=== PATIENT | female | born 2005 | race African-American/Black ===

== ENCOUNTER 2023-08-19 00:57 | Emergency (ER) | payer OTHER, SELFPAY ==
[2023-08-19 00:59] VITALS: BP 127/87; PULSE 81; RESP 16; TEMP 37.2; O2SAT 97; BMI 35.3
--- NOTE | 2023-08-19 01:39 | RAD_ITS ---
EXAM: XR Abdomen 1 View INDICATION: Female, 18 years old. Constipation TECHNIQUE: AP supine view COMPARISON: None FINDINGS: BOWEL: Normal gastric, small bowel and colonic gas patterns. No mucosal wall thickening. PERITONEUM: No free intraperitoneal air. ORGANS: No intra-abdominal mass. No intra-abdominal calcification. SKELETAL STRUCTURES: No acute skeletal abnormality. RAD/Abdomen Single View IMPRESSION: No acute intra-abdominal abnormality Electronically Signed: Víctor Bartlett MD at 2:33 EDT ,
--- NOTE | 2023-08-19 01:40 | ED.VIS.GI ---
HPI HPI - GI History of Present Illness Chief Complaint: Complaint Detail of Chief Complaint: Difficulty urinating. Constipation. Informant: patient Abdominal Pain/Flank Pain Onset: Days Context: Gradual Onset Timing: Continuous Location: - (Suprapubic) Current Severity: Mild Maximum Severity: Mild Nausea/Vomiting/Emesis GI Symptom: Negative for Nausea or Vomiting Diarrhea/Melena/Hematochezia GI Symptom: Positive for - (Constipation. 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 Past medical history of asthma. States that she is having difficulty urinating. States she has not a bowel movement for nearly 3 weeks. Has a history of constipation. No prior abdominal surgery. States she is using laxatives. When the nurses were doing her normal triage questioning they asked her if she felt safe patient has a chronic history of depression but she is currently not suicidal at this time she told me. Prior similar symptoms: Yes Recent Illness/Hospitalization: No PFSH PFSH Medical History Constipation Home Medications sulfamethoxazole 800 mg-trimethoprim 160 mg tablet (Bactrim DS) 1 tab PO BID 7 days #14 tabs 08/19/23 [Rx Last Taken Unknown] Allergy/AdvReac Type Severity Reaction Status Date / Time No Known Allergies Allergy Verified 08/19/23 01:19 Social History Smoking Status: Never smoker ROS ROS ED ROS Narrative Constipation. Trouble urinating. Abdominal discomfort. Review of Systems ROS Unobtainable: Denies due to encephalopathy Constitutional Constitutional ED: Denies chills or fever(s) Respiratory/Chest Respiratory/Chest: Denies cough Gastrointestinal Gastrointestinal: Reports abdominal pain and constipation; Denies diarrhea, melena, nausea or vomiting Genitourinary Genitourinary ED: Denies dysuria, hematuria or urinary frequency Musculoskeletal Musculoskeletal: Denies arthralgias or back pain Integumentary Denies abscess Neurologic Neurologic: Denies headache(s) Psychiatric Psychiatric: Denies anxiety or depression Endocrine Endocrinology: Denies polydipsia Hematologic/Lymphatic Hematologic/Lymphatic: Denies easy bleeding Allergic/Immunologic Allergic/Immunologic ED: Denies mouth swelling or tongue swelling EXAM Physical Exam Narrative Exam Narrative: Well-appearing 18-year-old female. Vital signs stable afebrile. She does not look septic toxic in any distress. HEENT exam unremarkable. Pupils round reactive light. No signs of trauma. Moist extremities. Neck nontender. No lymphadenopathy. Lungs clear to auscultation bilaterally. Heart regular rhythm rate about 80 no murmur. Chest wall and ribs nontender. Abdomen soft nondistended normal bowel sounds no peritoneal signs. No localizing tenderness. No hernia or mass. No signs of obstruction. Soft. Bowel sounds. Moving all 4 extremities. Nontender no edema. Normal range of motion. Normal caster investment casting strength. Back nontender. Skin unremarkable. Neurologically she is awake alert with no focal motor deficits. Const Vital Signs: 08/19/23 00:59 08/19/23 03:39 Temperature 98.9 F Temperature Source Oral Pulse Rate 81 Respiratory Rate 16 16 Blood Pressure 127/87 H Blood Pressure Mean 100 Pulse Ox 97 Oxygen Delivery Method Room Air Positive well nourished and well developed; Negative for cachectic, contractures or unkempt General Appearance ED: well developed and NAD; Negative for unkempt, cachectic, contractures or pallor Nutritional Appearance: Negative for cachectic HEENT Reports moist mucous membranes normocephalic and atraumatic; Negative for trauma or tenderness Eyes PERRL and EOMs intact bilaterally General Eye ED: Negative for pale conjunctiva or scleral icterus Neck no lymphadenopathy, supple and no JVD General: Negative for tenderness Carotids: Negative for other Lymph Lymphatic: Negative for other Resp normal respiratory effort and clear to auscultation bilaterally Effort and Inspection: Negative for respiratory distress Auscultation: Negative for rales, rhonchi or wheezes Cardio regular rate, regular rhythm, S1 normal heart sound, S2 normal heart sound and no murmurs Rate: Negative for bradycardia or tachycardic Rhythm: Negative for abnormal rhythm GI non-tender, non-distended and no masses Inspection: Negative for abdominal distention Auscultation: normoactive bowel sounds Palpation: soft; Negative for tender, guarding or rigid Back/Spine no CVA tenderness General Back: Negative for CVA tenderness Cervical Spine: Negative for cervical spine tenderness Thoracic Spine / Upper Back: Negative for thoracic spinal tenderness Lumbar Spine / Lower Back: Negative for lumbar spinal tenderness Coccyx: Negative for other Extremity full ROM General Extremety ED: Negative for edema or tenderness General Extremity: Negative for edema Neuro CN's II-XII intact bilaterally and moves all extremities Sensorium / Orientation: alert, oriented to person, oriented to place and oriented to time; Negative for orientation impaired, confused, lethargic or stuporous Motor Exam: strength 5/5 throughout Psych mental status grossly normal and thought process normal Appearance: Negative for unkempt Attitude: No agitated Mood & Affect: Negative for depressed, anxious or tearful Skin no wounds General Skin Exam: Negative for jaundice or pallor Lesions: no lesions Rashes: no rashes Trauma: Negative for abrasion Nails: Negative for discolored MDM MDM MDM Narrative Medical decision making narrative: 18-year-old female complaining constipation abdominal discomfort and trouble urinating. Urinalysis and urine test to be obtained. Her last menstrual period was within the last month. KUB for constipation. She will be given Tylenol for pain. Patient is doing well at 4:20 AM. She has been up and ambulating she walked to the bathroom. She will be treated for a UTI. Urine culture sent. She has no allergies to antibiotics she will be started on Bactrim 1 pill twice a day for a week. That will be filled here at the hospital. Plenty of fluids. Fruits vegetables and fiber. Stool softener for constipation. Outpatient follow-up. History & Record Review Discussion w/independent historian: Patient Additional record(s) reviewed:: No prior records Lab Data Attestation: I reviewed the patient's lab results. Lab results narrative: Urinalysis shows positive nitrites, no red cells, 25-50 white blood cells. It is contaminated with 5 to epithelial cells but also has 4+ bacteria. Given her symptoms, nitrates, bacteria and white cells this will be treated as UTI. Urine culture will be sent. Urine test is negative. Labs: Laboratory Results - last 24 hr 08/19/23 03:35 Urine Color Yellow Urine Clarity Clear Urine pH 6.0 Ur Specific Dex[place] 1.020 Urine Protein 15 H Urine Glucose (UA) Normal Urine Ketones Negative Urine Occult Blood Negative Urine Nitrite Positive H Urine Bilirubin Negative Urine Urobilinogen 4 H Ur Leukocyte Esterase 100 H Urine RBC 0-5 SEEN Urine WBC 25-50 SEEN Ur Squamous Epith Cells 5-10 SEEN Urine Bacteria 4+ Urine Mucus 0 SEEN Urine Test Negative Radiography Diagnostic Testing: Clinical Impression(s) from Imaging Studies KUB X-Ray 08/19/23 01:39 IMPRESSION: No acute intra-abdominal abnormality Electronically Signed: Víctor Bartlett MD at 2:33 EDT , KUB single view interpreted by myself and the radiologist shows no acute intra-abdominal abnormality. There is increased stool in the colon and rectum. Consistent with constipation. Discharge Plan Triage Chief Complaint: Complaint ED Provider: Ty Rush Dx/Rx/DC Orders Clinical Impression: Urinary tract infection, Constipation Instructions: Urinary Tract Infections in Women, ED Constipation (Adult) Prescriptions: New sulfamethoxazole-trimethoprim [Bactrim DS] 800-160 mg tablet 1 tab PO BID 7 Days Qty: 14 0RF Primary Care Provider: Care Physician,No Primary Referrals: Bebeto Santos MD [Med Staff - Light Cleaner] - As Needed [facility] Doctor,Out of [Non-Staff] - Activity Restrictions/Additional Instructions: You have a urinary tract infection. That will be treated with antibiotic Bactrim. You will take 1 pill twice a day for 7 days. Plenty of fluids and cranberry juice for the urinary tract infection. Plenty of fluids, fruits, vegetables and fiber for the constipation. Prune juice if needed. Stool softener as needed. Follow-up with your doctor if not improving or return if worse. Disposition Disposition: Home, Self Care
[2023-08-19] MEDS: Acetaminophen 500 MG Tablet 1000 MG PO (02:10)
[2023-08-19 03:39] VITALS: RESP 16
[2023-08-19 03:40] LABS: Mucous, Urine 0 SEEN /hpf (<or=2+)
[2023-08-19 03:41] LABS: Color, Urine Yellow (Yellow); Glucose, Dipstick Normal (Normal); Ketone-Dipstick Negative (Negative); Leukocyte Esterase-Dipstick 100 /ul (Negative); Nitrite-Dipstick Positive (Negative); Occult Blood-Urine Negative /ul (Negative); Protein-Dipstick 15 mg/dl (Negative); Urine Bilirubin Dipstick Negative (Negative); Urine Clarity Clear (Clear); Urine Urobilinogen 4 mg/dl (Normal)
[2023-08-19 03:47] LABS: Bacteria 4+ /hpf (None Seen); Red Blood Cells-Urine 0-5 SEEN /hpf (0-5); Squamous Epithelial Cells - UA 5-10 SEEN /hpf (5-10); White Blood Cells 25-50 SEEN /hpf (0-5)
[2023-08-19 03:48] LABS: Internal QC Validated? YES +Cl - CLEAR BKGD; Pregnancy, Urine Negative Negative
[2023-08-19] MEDS: Smz/Tmp Ds Tablet 1 TABLET PO (04:48)
== END 2023-08-19 04:51 | disposition home or self-care (01) ==
PROVIDERS: Emergency Provider Emergency Medicine; Visit Provider Emergency Medicine
DX: N39.0 Urinary tract infection, site not specified (principal); K59.00 Constipation, unspecified
CPT/HCPCS: 74018; 81001; 81025; 87077; 87086; 87088; 87186; 99284

== ENCOUNTER 2023-12-18 13:11 | Day surgery (SDC) | payer OTHER, SELFPAY ==
[2023-12-18] VITALS (7 sets, daily range): BP systolic 83–109; BP diastolic 52–71; PULSE 64–80; RESP 12–18; TEMP 35.8–36.4; O2SAT 97–100; BMI 37.5
--- NOTE | 2023-12-18 13:37 | PCM.HP.BLA ---
History and Physical Date of Admission: 12/18/23 Pre-Op History and Physical ? HPI: The patient is a 18 year old female presenting for pre-operative visit. She is scheduled for Suction D&C, for missed ab on 12/18/23. Procedure discussed along with risks, benefits and complications. Other alternatives discussed for management. Consent form signed? Yes. ? ? PAST MEDICAL HISTORY PAST MEDICAL HISTORY Diagnosis Date ? Asthma ? ? ? PAST SURGICAL HISTORY PAST SURGICAL HISTORY Procedure Laterality Date ? NONE ? CURRENT MEDICATIONS Current Outpatient Medications Medication Sig Dispense Refill ? doxylamine-pyridoxine, vit B6, 10-10 mg TbEC Take 2 tabs at night. If symptoms persist after 2 days add one tab in the morning. If symptoms still persist after 4 days add a tab mid-day 60 tablet 1 ? No current facility-administered medications for this visit. ? ? ALLERGIES: Patient has no known allergies. ? PERSONAL HISTORY: SOCIAL HISTORY Social History ? Tobacco Use ? Smoking status: Never ? Smokeless tobacco: Never Vaping Use ? Vaping Use: Never used Substance Use Topics ? Alcohol use: Never ? Drug use: Never ? FAMILY HISTORY: FAMILY HISTORY No family history on file. ? REVIEW OF SYMPTOMS: negative except as noted above PHYSICAL EXAMINATION: ? VITALS: Blood pressure 116/72, pulse 96, last menstrual period 10/20/2023, SpO2 100%. ? GENERAL: The patient is well nourished, well hydrated in no acute distress. , The patient is oriented to time, place, and person. NECK: full range of motion GENITALIA: Normal external genitalia, Urethral meatus normal, Bladder nontender, normal vagina and normal vaginal tone, normal cervix, and perineum WNL ? Limited Bedside us: 8w4 day- intrauterine no cardiac activity. Gestational sac funneling to endocervix. ? IMPRESSION: @ 8w4d- missed ? PLAN: Suction D&C ? Pt has been counseled on risks/benefits and alternatives of surgery including but not limited to anesthesia, bleeding, infection, uterine perforation injury to pelvic structures including bowel, bladder, ureters and vessels. Pt wishes to proceed with surgery at this time. Retained products- need for transfusion reviewed. ? Pre and post op instructions reviewed Doxycycline and preop labs ordered. Declines Chromosomal testing of POC- Routine to Lab ? I have reviewed and updated past medical and surgical history, medications and allergies Ruba Livingston MD
[2023-12-18 13:55] LABS: Hematocrit 39.9 % (37-47); Hemoglobin 12.5 g/dL (12.0-15.0); Mean Corp Hgb Conc 31.3 g/dL (32-36); Mean Corpuscular Hgb 26.3 pg (27.0-32.0); Mean Corpuscular Volume 83.8 fL (81-99); Mean Platelet Vol. 10.2 fl (6.2-12.0); Platelet Count 314 K/mm3 (150-450); RBC Distribution Width CV 13.2 % (11.6-14.6); RBC Distribution Width SD 40.4 fl (35.1-43.9); Red Blood Count 4.76 M/mm3 (4.2-5.4); White Blood Count 7.5 K/mm3 (4.4-11.0)
[2023-12-18] MEDS: Doxycycline 100 MG CAPSULE 200 MG PO (14:03)
[2023-12-18] MEDS: Lactated Ringers 1,000 ML 15 ML IV (14:03)
--- NOTE | 2023-12-18 14:30 | POC_PTH ---
PATHOLOGY RESULTS PATIENT: CHRIS SON [place] [facility] [place] U[place][id number] AGE/SX: 18/F ROOM: RE12/18/[address]: Dr. Opal Vasquez MD : 2005 BED: DIS: 12/18/2023 SPEC #: [id number] RECD: 12/21/23 08:11 STATUS: DELORES BURCIAGA #: [id number] SRAVAN: 12/18/23 14:[address]: Opal Vasquez DEPT: SURGICAL PATHOLOGY RECD BY: Tiara Trotter ENTERED: 12/21/23 08:11 SP TYPE: PROD CONC OTHR DR: No Primary Care Phys Tissues: Product of conception, NOS Procedures: Surgery Specimen Level IV HEADER OPERATION: Suction dilation and curettage PRE-OP DIAGNOSIS: Missed , , 8 weeks, 4 days TISSUE SUBMITTED: Products of conception MICROSCOPIC DIAGNOSIS Endometrium, curettage: Chorionic villi, decidualized stroma and trophoblastic cells (products of conception). AM:steve 12/22/2023 MICROSCOPIC DESCRIPTION Slides are reviewed. GROSS DESCRIPTION Received in fixative is one container labeled with the patient's name and designated products of conception. The specimen consists of multiple irregular fragments of light to dark menendez soft tissue that in aggregate measure 10.0 x 7.0 x 1.5 cm. parts are not grossly recognized. Floral Arranger portions are submitted in one cassette. / AM:steve 05/22/2024 TC:5 CPT: 88108
--- NOTE | 2023-12-18 16:24 | OP.PCM_ITS ---
Problems Associated Problem List Diagnoses (1) Incomplete miscarriage: Report of Operation Date of Procedure: 12/18/23 Pre-Operative Diagnosis: incomplete miscarriage 8 weeks 4 days Post-Operative Diagnosis: same Surgery/Procedure Performed:: Suction D&C Description of Surgical Findings:: POC at internal os. Small clot Uterine cavity 9 cm Surgeon: Opal Vasquez electrical accessories i assembler: None Type of Anesthesia: MAC/Supplemental Anesthesiologist: Skye Jeffrey Specimen's removed: productions of conseption Estimated Blood Loss (mL): 50 Fluids Replaced: 500 cc Description of Procedure: Patient was taken to the OR and placed on the OR table in a dorsal supine position. Anesthesia was induced and she was placed in a dorsal lithotomy position. A vaginal prepped was performed and her bladder was drained by straight cath. A weighted speculum was placed and the anterior cervix grasped with a single tooth tenaculum. The uterine cavity was found to be 9 cm. The cervix was serially dilated with ease. An 8 curved curette was placed the cavity and the suction used to evacuate the contents. A sharp curette was used to dislodge the remaining membranes. The suction curette was once again introduced into the cavity and the cavity evacuated. Minimal bleeding occurred. All instruments were removed from the vagina and she was cleaned up. All counts were correct. She was taken to the PACU in stable condition. Procedure Start Time: 15:50 Procedure Stop Time: 16:00 Complications none Admit VTE Documentation VTE Present on Admission: No VTE Mechan Device Prophylaxis: None VTE Pharm Prophylaxis ordered?: No Reason prophylaxis not ordered:: Treatment Not Indicated
== END 2023-12-18 18:34 | disposition home or self-care (01) ==
LOC: SDC 13:16 → AC 13:17
PROVIDERS: Obstetrics & Gynecology; Referring Provider Obstetrics & Gynecology; Visit Provider Obstetrics & Gynecology
PROC: (CPT 59812; principal; 2023-12-18 14:15)
DX: O03.4 Incomplete spontaneous abortion without complication (principal)
CPT/HCPCS: 59812; 85027; 86850; 86900; 86901; 88305; J7120; J2405

== ENCOUNTER 2025-01-09 16:29 | Emergency (ER) | payer OTHER, SELFPAY ==
[2025-01-09 16:30] VITALS: BP 115/91; PULSE 115; RESP 18; TEMP 36.9; O2SAT 100; BMI 37.9
--- NOTE | 2025-01-09 16:54 | US_ITS ---
PROCEDURE: TRANSVAGINAL W/PREG US 01/09/2025 REASON FOR EXAM: VAGINAL BLEEDING WITH COMPARISON: None FINDINGS: No visualized yolk sac or embryo is noted. No detectable heart rate. . Uterine Abnormalities: Maternal uterus is unremarkable. Uterus measures 7.9 x 4.93.7 cm. Ovaries / Adnexa: Both maternal ovaries are visualized and unremarkable. Right ovary measures 3.7 x 3.5 x 2.6 cm in the left ovary measures 2 x 1.6 x 1.7 cm. There is a 2.2 x 2.2 x 2.0 cm corpus luteal cyst within the right ovary. Multiple physiologic follicles also noted. Estimated gestational age by LMP 5 weeks 0 days. US/Transvaginal w/Preg US IMPRESSION: No visualized pole or yolk sac. Findings secondary to a nonviable pregna ncy. However, recommend repeat examination in approximately 1 week to re-evaluate. Reading Location: [facility]
--- NOTE | 2025-01-09 16:56 | EDS_ITS ---
HPI HPI - Female History of Present Illness Chief Complaint: Vag Bld, Preg Narrative Narrative: 19-year-old female, , unknown gestational weeks presents with vaginal bleeding that she experienced today. She relates history that her last menstrual period was on 05 December, 1 month ago, but only lasted 2 days. 2 weeks ago she went to her PRINT PRODUCTION COORDINATOR at the [facility], where she had hormone levels drawn and it was only 250, but 2 days later had increased to over 800. She is taking vitamins. She states that today, she experienced vaginal bleeding almost the same amount as her regular menses. She denies any lightheadedness or dizziness. She states she is not having any pelvic pain or cramping. She is concerned because she had previous miscarriage with her last gestation. PFSH [facility] Medical History Incomplete miscarriage Asthma Constipation Home Medications ?Medication ?Instructions ?Recorded ?Last Taken ?Type hydrocodone-acetaminophen 5-325mg 1 tab PO Q6H PRN jana n 3 days #12 01/09/25 Unknown Rx 5mg-325mg tabs Allergy/AdvReac Type Severity Reaction Status Date / Time No Known Allergies Allergy Verified 01/09/25 16:31 Social History Smoking Status: Never smoker ROS ROS ED ROS Narrative Review of systems positive for vaginal bleeding about the same amount as menses. No pelvic pain or cramping. No lightheadedness or dizziness. No chest pain or shortness of breath. EXAM Physical Exam Narrative Exam Narrative: Afebrile. Vital signs noted. Nontoxic-appearing. Cardiovascular examination reveals mild tachycardia. Lungs clear to auscultation bilaterally. Abdomen soft nontender with normoactive bowel sounds. No noted subconjunctival pallor. Neurological examination nonfocal and nonlateralizing. Able to stand from chair and transfer to cot without difficulty. Chaperoned pelvic examination reveals moderate amount of blood and clot within the vaginal vault which were cleared with cotton swabs. She has no adnexal tenderness or cervical motion tenderness. Difficult to assess cervical os. Const Vital Signs: 01/09/25 16:30 01/09/25 18:30 01/09/25 20:00 Temperature 98.5 F Temperature Source Oral Pulse Rate 115 H 109 H 73 Respiratory Rate 18 15 16 Blood Pressure 115/91 H 116/79 107/88 H Blood Pressure Mean 99 91 94 Pulse Ox 100 99 100 Oxygen Delivery Method Room Air Room Air 01/09/25 21:53 Temperature 98.4 F Temperature Source Pulse Rate 82 Respiratory Rate 16 Blood Pressure 107/88 H Blood Pressure Mean 94 Pulse Ox 99 Oxygen Delivery Method MDM MDM MDM Narrative Medical decision making narrative: Given her vaginal bleeding with reported , concern is for miscarriage versus ectopic versus subchorionic hemorrhage. She is unsure of her blood type, so ABO Rh will be obtained. I will obtain CBC and CMP as well as well as ultrasound. Serum and serum hCG will also be obtained to document levels. I reviewed her laboratory work and she has a normal hemoglobin of 12.0, white count normal at 5.9 with platelet count 416. Sodium normal at 136 with potassium 4.1, chloride 103, BUN of 6 and creatinine 0.66. hCG quantitative measurement is elevated 2865. Serum had been ordered but was canceled by lab. Her blood type is O+. I do not feel she needs RhoGAM. I reviewed the radiology report of the ultrasound, transvaginal, and it comments that there is no visualized pole or yolk sac. However, there was no com ment on whether or not this was an intrauterine gestation or if gestational sac was seen. I discussed the patient directly with the radiologist, who rereviewed the films and states that the gestational sac is present intrauterine only, but is low. I then discussed the patient with the nurse architectural design professor, Dinora Tadeo, who agrees with close outpatient follow-up. Patient is to call tomorrow morning for an appointment to be seen within the next few days as well as arrange for quantitative beta-hCG as well as ultrasound. Patient was given 1 [place] tablet here and prescription written for 12 tablets as I feel she has more of a threatened versus incomplete miscarriage. Return instructions to the emergency department were reviewed. Disposition is discharged home in stable condition. History & Record Review Discussion w/independent historian: Patient Lab Data Attestation: I reviewed the patient's lab results. Labs: Laboratory Results - last 24 hr 01/09/25 17:05 WBC 5.9 RBC 4.81 Hgb 12.0 Hct 38.0 MCV 79.0 L MCH 24.9 L MCHC 31.6 L RDW Std Deviation 40.5 RDW Coeff of Inez 14.2 Plt Count 416 MPV 9.8 Immature Gran % (Auto) 0.200 Neut % (Auto) 60.2 Lymph % (Auto) 32.0 [place] % (Auto) 6.1 Eos % (Auto) 1.2 Baso % (Auto) 0.3 Absolute Neuts (auto) 3.5 Absolute Lymphs (auto) 1.88 Nucleated RBC % 0 Sodium 136 Potassium 4.1 Chloride 103 Carbon Dioxide 21.9 Anion Gap 11 BUN 6 Creatinine 0.66 L Estim Creat Clear Calc 166.49 Est GFR (MDRD) Non-Af 128 BUN/Creatinine Ratio 9.3 L Glucose 93 Calcium 9.2 Total Bilirubin 0.37 AST 23 ALT 8 Alkaline Phosphatase 80 Total Protein 7.3 Albumin 4.2 Globulin 3.2 Albumin/Globulin Ratio 1.3 HCG, Quant 2865 H Serum , Qual Cancelled Blood Type O POSITIVE Radiography Diagnostic Testing: Clinical Impression(s) from Imaging Studies Obstetrics Ultrasound 01/09/25 16:54 IMPRESSION: No visualized pole or yolk sac. Findings secondary to a nonviable . However, recommend repeat examination in approximately 1 week to re-evaluate. [facility] Discussion w/another healthcare provider: Water Jet Operator and Radiologist Discharge Plan Triage Chief Complaint: Vag Bld, Preg ED Provider: Johann Jo Dx/Rx/DC Orders Clinical Impression: Vaginal bleeding during , Threatened Instructions: Miscarriage Threatened Prescriptions: New hydrocodone-acetaminophen 5-325 mg tablet 1 tab PO Q6H PRN (Reason: pain) 3 Days Qty: 12 0RF Primary Care Provider: Care Physician,No Primary Referrals: Onelia Schaefer MD [Med Staff - Active Staff] - 1 Day Care Physician,No Primary [Primary Care Provider] - Activity Restrictions/Additional Instructions: Call the PRINT PRODUCTION COORDINATOR first thing tomorrow morning. They will arrange for follow-up and further testing. Return to the emergency department with increased bleedi ng, increased pain, fever, new or worsening symptoms. Print Language: Jordanian Disposition Disposition: Home, Self Care Discharge Date/Time: 01/09/25 22:00
[2025-01-09 17:19] LABS: Absolute Lymphocyte Count 1.88 X10^3/uL (0.83-4.51); Absolute Neutrophil Count 3.5 X10^3/uL (2.0-7.7); Basophil# 0.02 X10^3/uL; Basophil% 0.3 % (0-1); Eosinophil# 0.07 X10^3/uL; Eosinophils% 1.2 % (0-5); Lymphocyte # 1.88 X10^3/ul (0.83-4.51); Mean Corp Hgb Conc 31.6 g/dL (32-36); Mean Corpuscular Hgb 24.9 pg (27.0-32.0); Mean Platelet Vol. 9.8 fl (6.2-12.0); Monocyte# 0.36 X10^3/uL; Monocyte% 6.1 % (0-10); NRBC Flagged by Analyzer 0 % (0-5); Neutrophil # 3.53 X10^3/uL (2.7-7.7); Neutrophil % 60.2 % (47-70); Platelet Count 416 K/mm3 (150-450); RBC Distribution Width CV 14.2 % (11.6-14.6); RBC Distribution Width SD 40.5 fl (35.1-43.9); Red Blood Count 4.81 M/mm3 (4.2-5.4); White Blood Count 5.9 K/mm3 (4.4-11.0)
[2025-01-09 18:10] LABS: ALB/GLOB Ratio 1.3 RATIO (0.9-2.4); AST(SGOT) 23 U/L (<=31); Alanine Aminotransfer ALT/SGPT 8 U/L (<=34); Albumin, Serum 4.2 g/dL (3.5-5.0); Alkaline Phosphatase 80 U/L (35-104); Anion Gap 11 (5-15); BUN 6 mg/dL (4-19); BUN/Creat Ratio 9.3 RATIO (10-20); Calcium,Total 9.2 mg/dL (7.6-11.0); Carbon Dioxide 21.9 mmol/L (21.0-32.0); Chloride 103 mmol/L (98-108); Creatinine, Serum 0.66 mg/dL (0.70-1.20); EST Glomerular Filtration Rate 128 (>60); Estimated Creatinine Clearance 166.49 ml/min (50-250); Globulin 3.2 g/dL (2.2-4.2); Glucose 93 mg/dL (70-99); Potassium 4.1 mmol/L (3.3-5.1); Protein, Total 7.3 g/dL (5.9-8.4); Sodium Level 136 mmol/L (133-145); Total Bilirubin 0.37 mg/dL (0.00-1.30)
[2025-01-09 18:30] VITALS: BP 116/79; PULSE 109; RESP 15; O2SAT 99
[2025-01-09 20:00] VITALS: BP 107/88; PULSE 73; RESP 16; O2SAT 100
--- NOTE | 2025-01-09 21:10 | ED.RN ---
This RN reported a safety incident at this time d/t blood results not being resulted in appropriate time, causing a delay in patient care. See appropriate documentation.
[2025-01-09] MEDS: HYDROcodone Bitartrate/Apap 5/325 Tablet PO (21:17)
[2025-01-09 21:19] LABS: hCG Titer Quant., Serum 2865 mIU/mL (<9 non-preg)
[2025-01-09 21:53] VITALS: BP 107/88; PULSE 82; RESP 16; TEMP 36.9; O2SAT 99
== END 2025-01-09 22:00 | disposition home or self-care (01) ==
PROVIDERS: Emergency Provider Emergency Medicine; Visit Provider Emergency Medicine
DX: O20.0 Threatened abortion (principal); Z3A.00 Weeks of gestation of pregnancy not specified
CPT/HCPCS: 76817; 80053; 84702; 85025; 86900; 86901; 99284; A4216

== ENCOUNTER 2025-08-23 16:26 | Emergency (ER) | payer OTHER, SELFPAY ==
[2025-08-23 16:27] VITALS: BP 128/92; PULSE 92; RESP 16; TEMP 36.9; O2SAT 100; BMI 38.2
--- NOTE | 2025-08-23 16:52 | EX.ED.VIS.PS ---
HPI HPI - Psych History of Present Illness Chief Complaint: Suicidal Informant: patient and mental health staff Narrative Narrative: 20-year-old female presenting to the emergency room with suicidal thoughts. Patient is a [employer] [place]. Apparently during the night she had texted the suicide hotline as well as her counselor. She was evaluated today and advised to come to emergency. Patient states that she has had 2 miscarriages within the past 2 years. She states that that has been a lot to deal with. She notes that she is struggling with her academic studies currently because of depression. She has been having trouble sleeping and has been utilizing NyQuil and Benadryl daily. Since around March. She states that she has not attended class for the past week and a half. She states that she tried exercising 1 time but was very sore afterwards and has not gone back. She states that she has tried to limit what she eats but ends up binge eating and gaining weight. She was on antidepressants but states that her mom told her to stop them. Patient states that she was hospitalized around a year ago with suicide attempt and was doing better after his hospitalization. She states that this episode seems worse than when she was hospitalized before. [facility] Medical History Suicidal thoughts Incomplete miscarriage Asthma Constipation Home Medications ?Medication ?Instructions ?Recorded ?Last Taken ?Type NK 08/23/25 Unknown History Allergy/AdvReac Type Severity Reaction Status Date / Time No Known Allergies Allergy Verified 08/23/25 16:26 Family History no significant family his Social History household members: other current occupational status: student Smoking Status: Never smoker ROS ROS ED Constitutional Constitutional ED: Denies chills, fever(s) or weight loss Eyes Eyes: Denies change in vision or diplopia ENT ENT ED: Denies ear pain, rhinorrhea or sore throat Cardiovascular Cardiovascular: Denies chest pain, orthopnea, palpitations or racing heartbeat Respiratory/Chest Respiratory/Chest: Denies cough, dyspnea or orthopnea Gastrointestinal Gastrointestinal: Denies abdominal pain, diarrhea, nausea or vomiting Genitourinary Genitourinary ED: Denies dysuria, hematuria or urinary frequency Musculoskeletal Musculoskeletal: Denies arthralgias or myalgias Integumentary Denies abscess or rash Neurologic Neurologic: Denies headache(s) or weakness Psychiatric Psychiatric: Reports depression, suicidal ideation, suicidal thoughts and other Details: Insomnia ; Denies anxiety Endocrine Endocrinology: Denies polydipsia, polyphagia or polyuria Allergic/Immunologic Allergic/Immunologic ED: Denies mouth swelling, tongue swelling or urticaria EXAM Physical Exam Const Vital Signs: 08/23/25 16:27 Temperature 98.4 F Temperature Source Oral Pulse Rate 92 Respiratory Rate 16 Blood Pressure 128/92 H Blood Pressure Mean 104 Pulse Ox 100 Oxygen Delivery Method Room Air Positive well nourished and well developed General Appearance ED: well developed and NAD HEENT Reports normocephalic, head/scalp atraumatic and moist mucous membranes Eyes PERRL and EOMs intact bilaterally Neck no lymphadenopathy, supple and no JVD Resp normal respiratory effort and clear to auscultation bilaterally Cardio regular rate, regular rhythm and no murmurs GI normal to inspection, nondistended, normoactive bowel sounds and non-tender Palpation: soft Back/Spine no CVA tenderness and normal ROM Extremity normal to inspection General Extremety ED: Negative for edema General Extremity: Negative for edema Neuro oriented x3 and CN's II-XII intact bilaterally Sensorium / Orientation: alert Motor Exam: strength 5/5 throughout Psych mental status grossly normal Appearance: grossly normal Attitude: calm Activity / Motor Behavior: appropriate eye contact Speech: slow and rapid Mood & Affect: depressed and sad; Negative for tearful or labile affect Thought Process: normal thought process Thought Content: suicidality Attention / Concentration: attention grossly intact Memory / Cognition: memory grossly intact Skin no rashes or lesions noted and no wounds MDM MDM MDM Narrative Medical decision making narrative: Differential diagnosis includes major depressive disorder suicidality bipolar disorder schizophrenia behavior Second screening labs will be obtained. Based upon the interview with myself and the interview with crisis and after being evaluated by her school counselor 3 of us are all in agreement the patient would benefit from hospitalization. We are going to work towards this goal. Basic blood work was obtained. Toxicology is negative test is negative. Glucose 110. Normal LFTs. History & Record Review Discussion w/independent historian: Patient Additional record(s) reviewed:: Prior outpatient record, Prior ED visit and Prior labs Lab Data Attestation: I reviewed the patient's lab results. Labs: Laboratory Results - last 24 hr 08/23/25 08/23/25 17:26 18:24 WBC 4.5 RBC 4.58 Hgb 11.4 L Hct 35.7 L MCV 77.9 L MCH 24.9 L MCHC 31.9 L RDW Std Deviation 40.6 RDW Coeff of Inez 14.6 Plt Count 351 MPV 9.8 Immature Gran % (Auto) 0.200 Neut % (Auto) 49.1 Lymph % (Auto) 38.7 Gray % (Auto) 8.2 Eos % (Auto) 3.6 Baso % (Auto) 0.2 Absolute Neuts (auto) 2.2 Absolute Lymphs (auto) 1.74 Nucleated RBC % 0 Sodium 140 Potassium 3.9 Chloride 106 Carbon Dioxide 23.4 Anion Gap 11 BUN 7 Creatinine 0.51 L Estim Creat Clear Calc 214.64 Est GFR (MDRD) Non-Af 135 BUN/Creatinine Ratio 13.4 Glucose 110 H Calcium 9.2 Total Bilirubin 0.22 AST 15 ALT 11 Alkaline Phosphatase 67 Total Protein 6.8 Albumin 3.9 Globulin 2.9 Albumin/Globulin Ratio 1.3 Serum , Qual NEGATIVE Urine Opiates Screen NEGATIVE U Buprenorphine Qual NEGATIVE Ur Oxycodone Screen NEGATIVE Urine Methadone Screen NEGATIVE Urine Fentanyl Screen NEGATIVE Ur Barbiturates Screen NEGATIVE Ur Phencyclidine Scrn NEGATIVE Ur Amphetamines Screen NEGATIVE U Benzodiazepines Scrn NEGATIVE Urine Cocaine Screen NEGATIVE U Cannabinoids Screen NEGATIVE Ethyl Alcohol < 10.1 Management Discussion w/another healthcare provider: Behavioral health Discharge Plan Triage Chief Complaint: Suicidal ED Provider: Pravin Baldwin Dx/Rx/DC Orders Clinical Impression: Depression, Suicidal ideation Prescriptions: No Action NK Primary Care Provider: Care Physician,No Primary Referrals: Care Physician,No Primary [Primary Care Provider, Medical] Print Language: Welsh Disposition Disposition: Psychiatric Hospital or Unit
[2025-08-23 17:37] LABS: Hematocrit 35.7 % (37-47); Hemoglobin 11.4 g/dL (12.0-15.0); Immature Granulocytes Count 0.010 X10^3/uL (0.0-0.0); Mean Corp Hgb Conc 31.9 g/dL (32-36); Mean Corpuscular Volume 77.9 fL (81-99); Mean Platelet Vol. 9.8 fl (6.2-12.0); NRBC Flagged by Analyzer 0 % (0-5); Platelet Count 351 K/mm3 (150-450); RBC Distribution Width CV 14.6 % (11.6-14.6); RBC Distribution Width SD 40.6 fl (35.1-43.9); Red Blood Count 4.58 M/mm3 (4.2-5.4); White Blood Count 4.5 K/mm3 (4.4-11.0)
[2025-08-23 18:00] LABS: AST(SGOT) 15 U/L (<=31); Alanine Aminotransfer ALT/SGPT 11 U/L (<=34); Albumin, Serum 3.9 g/dL (3.5-5.0); Alcohol, Blood (Medical)-Serum < 10.1 mg/dL (<=10.0); Alkaline Phosphatase 67 U/L (35-104); Anion Gap 11 (5-15); BUN 7 mg/dL (4-19); BUN/Creat Ratio 13.4 RATIO (10-20); Calcium,Total 9.2 mg/dL (7.6-11.0); Carbon Dioxide 23.4 mmol/L (21.0-32.0); Chloride 106 mmol/L (98-108); Estimated Creatinine Clearance 214.64 ml/min (50-250); Globulin 2.9 g/dL (2.2-4.2); Glucose 110 mg/dL (70-99); Potassium 3.9 mmol/L (3.3-5.1)
[2025-08-23 18:14] LABS: Internal QC Validated? YES +Cl - CLEAR BKGD; Pregnancy, Serum, hCG Quali. NEGATIVE Negative; Record Kit Lot#, Serum Preg. 980607
[2025-08-23 18:43] LABS: Barbiturate Urine NEGATIVE (< 200 ng/mL); Benzodiazepine Urine NEGATIVE (< 200 ng/mL); PCP Urine NEGATIVE (< 25 ng/mL); THC Urine NEGATIVE (< 50 ng/mL)
[2025-08-23 23:02] VITALS: BP 113/68; PULSE 74; RESP 18; O2SAT 94
[2025-08-24] VITALS: BP 113/68; PULSE 74; RESP 16; TEMP 36.7; O2SAT 94
--- NOTE | 2025-08-24 00:07 | PCA ---
PT ACCEPTED AT [facility] BY DR. JOANNA SCHAEFER. INTAKE UNIT. LOCAL TRANSPORT ARRANGED.
[2025-08-24 07:00] VITALS: BP 120/76; PULSE 73; RESP 14; O2SAT 100
--- NOTE | 2025-08-24 08:17 | ED.RN ---
transport in department
== END 2025-08-24 08:18 ==
PROVIDERS: Emergency Provider Emergency Medicine; Visit Provider Emergency Medicine
DX: F32.A Depression, unspecified (principal); R45.851 Suicidal ideations
CPT/HCPCS: 80053; 80307; 82077; 84703; 85025; 99285